=== PATIENT | male | born 1990 | race Caucasian/White ===

== ENCOUNTER 2021-07-04 10:25 | Emergency (ER) | payer SELFPAY ==
[2021-07-04 10:26] VITALS: BP 155/77; PULSE 107; RESP 18; TEMP 36.9; O2SAT 100; BMI 27.1
--- NOTE | 2021-07-04 10:36 | XR_ITS ---
FINAL REPORT CLINICAL HISTORY: injury, pain, fall, pt unable to bend knee FINDINGS: RIGHT KNEE 3 views of the right knee were obtained. There is no acute fracture or dislocation. There are postoperative changes of the patella. Patella [place] is noted. A patellar tendon injury cannot be excluded. Soft tissues are unremarkable. IMPRESSION: Patella [place] is noted, a patellar tendon injury cannot be excluded. MRI may be helpful. Reviewed, Interpreted and Dictated by Ludwin Rosas III, MD Transcribed by Sabrina Aldana Authenticated by Ludwin Rosas III, MD on 07/04/2021 12:39:59 PM [facility]
--- NOTE | 2021-07-04 10:37 | HMH.EDGENADL ---
ED Disposition Clinical Impression: Rupture of right patellar tendon Qualifiers: Encounter type: initial encounter Qualified Code(s): S86.811A - Strain of other muscle(s) and tendon(s) at lower leg level, right leg, initial encounter Disposition: Home, Self-Care Condition on Discharge: Good Prescriptions: Oxycodone HCl/Acetaminophen [Percocet 7.5-325 mg Tablet] 1 each PO Q6 PRN 3 Days #12 tab PRN Reason: Moderate To Severe Pain Transmission Status: Pending to [facility]/pharmacy #[id number] Referrals: Provider,Referral, MD [Primary Care Provider] - - Critical Care Critical Care Time: No Attestation: On , the high probability of a clinically significant, sudden or life threatening deterioration of the following system(s) required my full and direct attention, intervention and personal management. The time I documented below is in addition to time spent performing reported procedures but includes the following listed in this critical care notation. Medical Decision Making - Yamil Inquiry Pt receiving controlled substance: Yes Yamil was queried for this patient: Yes Risks and benefits of using a controlled substance: were discussed with pt by Vital Signs: 07/04/21 10:26 07/04/21 11:28 07/04/21 11:29 Temperature 98.5 F 98.5 F 98.5 F Temperature Source Oral Oral Pulse Rate 102 H 100 H Pulse Rate [Left Radial] 107 H Respiratory Rate 18 18 18 Blood Pressure 145/78 H 160/75 H Blood Pressure [Right Arm] 155/77 H Blood Pressure Mean [Right Arm] 103 Blood Pressure Source [Right Arm] Automatic Cuff Blood Pressure Position [Right Arm] Sitting 02 Sat by Pulse Oximetry 100 Oxygen Delivery Method Room Air Room Air Room Air Orders (Tests/Meds): ED MEDICATIONS Discontinued Medications Generic Name Dose Route Start Last Admin Trade Name Freq PRN Reason Stop Dose Admin Ketorolac Tromethamine 60 mg 07/04/21 10:36 07/04/21 11:03 Ketorolac 60mg/2ml Vial IM 07/04/21 10:37 Not Given ONCE ONE Oxycodone/Acetaminophen 1 each 07/04/21 10:36 07/04/21 11:03 Oxycodone 5mg W/Apap 325mg Tablet PO 07/04/21 10:37 Not Given ONCE ONE Oxycodone/Acetaminophen 1 each 07/04/21 11:02 07/04/21 11:04 Oxycodone 7.5mg W/Apap 325mg Tablet PO 07/04/21 11:03 1 each ONCE ONE Administration ORDERS Category Date Time Status XR knee RT 3V Stat Exams 07/04/21 10:36 Taken General Adult HPI - General Stated complaint: AO rt knee pain Time Seen by Provider: 07/04/21 10:37 - History of Present Illness HPI narrative: 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, diff to bear weight, mod pain Onset (ago): minute(s) Radiation: non-radiation Severity: moderate Quality: aching Consistency: constant Relieving factors: immobilization Exacerbating factors: movement Associated symptoms: denies other symptoms - Related Data Previous Rx's Medication Instructions Recorded Oxycodone HCl/Acetaminophen 1 each PO Q6 PRN 3 Days #12 tab 07/04/21 [Percocet 7.5-325 mg Tablet] Allergies Allergy/AdvReac Type Severity Reaction Status Date / Time No Known Allergies Allergy Verified 07/04/21 10:44 [facility] History - Hepatitis A Screen Attestation statement:: This patient has been screened for Hepatitis A risk factors. ROS Obtained: Yes All systems reviewed & no additional complaints Physical Exam - General General appearance: alert, in no apparent distress - Respiratory Respiratory exam: Absent: respiratory distress, wheezes, stridor - Cardiovascular Cardiovascular exam: Present: regular rate, normal rhythm. Absent: bradycardia - Extremities Exam Extremities exam: Present: other (rt knee dec rom due to pain, mild laxity, mild anterior edema, ttp patellar tend) - Neurological Exam Neurological exam: Present: alert, oriented X3, CN II-XII intact - Skin Skin exam: Present: warm, intact, normal color
[2021-07-04 11:28] VITALS: BP 145/78; PULSE 102; RESP 18; TEMP 36.9; O2SAT 100
[2021-07-04 11:29] VITALS: BP 160/75; PULSE 100; RESP 18; TEMP 36.9; O2SAT 100
== END 2021-07-04 11:31 | disposition home or self-care (01) ==
PROVIDERS: Emergency Provider Emergency Medicine
DX: S86.811A Strain of other muscle(s) and tendon(s) at lower leg level, right leg, initial encounter (principal); W01.0XXA Fall on same level from slipping, tripping and stumbling without subsequent striking against object, initial encounter
CPT/HCPCS: 73562; 99283

== ENCOUNTER 2021-07-08 12:06 | Emergency (ER) | payer SELFPAY ==
[2021-07-08 12:07] VITALS: BP 125/74; PULSE 78; RESP 16; TEMP 36.6; O2SAT 98; BMI 24.3
--- NOTE | 2021-07-08 12:22 | HMH.EDGENADL ---
ED Disposition Clinical Impression: Rupture of right patellar tendon Qualifiers: Encounter type: subsequent encounter Qualified Code(s): S86.811D - Strain of other muscle(s) and tendon(s) at lower leg level, right leg, subsequent encounter Disposition: Home, Self-Care Condition on Discharge: Good Additional Instructions: Please follow-up with her surgeons, caution when taking opioid pain medications as these substances are addictive, keep away from others, dispose of any unused. Prescriptions: methocarbamoL [Methocarbamol 500mg Tablet] 1,000 mg PO BID 30 Days #30 tab Transmission Status: Pending to [facility] Oxycodone HCl [Oxycodone 5mg tab (IR)] 5 mg PO Q6 #12 tablet Transmission Status: Sent to [facility] Referrals: Provider,Referral, [Primary Care Provider] - - Critical Care Critical Care Time: No Attestation: On 07/08/21, the high probability of a clinically significant, sudden or life threatening deterioration of the following system(s) required my full and direct attention, intervention and personal management. The time I documented below is in addition to time spent performing reported procedures but includes the following listed in this critical care notation. Medical Decision Making - Medical Records Medical records reviewed: Yes: I reviewed the patient's medical records. - Yamil Inquiry Pt receiving controlled substance: Yes Yamil was queried for this patient: Yes Risks and benefits of using a controlled substance: were discussed with pt by me Medical Decision Narrative: Patient is a 30-year-old male presents the ED today for further evaluation of right lower extremity pain. Patient with a known diagnosis of patellar tendon dislocation and rupture, patella appears to be in the appropriate positioning today, patient essentially has had delayed surgery secondary to Covid, and has run out of pain medications, on exam I did not find any concerning symptoms of the right lower extremity, pulses are intact there is no swelling, there is no sensory change or weakness. Will prescribe patient methocarbamol of multimodal pain therapy, and will prescribe additional oxycodone for the patient to take at home for pain, discussed risks and benefits of obtaining an opioid prescription at this time, however given the patient has follow-up scheduled, no concerning findings on Yamil, believe it is reasonable to send patient with another opioid prescription for only a couple of days. Patient given return precautions return to the ED with any new or worsening symptoms as we discussed evidence of swelling, vascular injury of the right lower extremity, sensory change. Patient is in the medical field, is aware of the symptoms, has verbalized understanding with this plan. General Adult HPI - General Stated complaint: covid pos 07/07, 07/04 knee injury Time Seen by Provider: 07/08/21 12:10 - History of Present Illness HPI narrative: Patient is a 30-year-old male presents the ED today for further evaluation of right knee pain. Patient was recently seen here in the emergency department, after slipping, and having a patellar dislocation with continued knee pain afterward, found to have a quadriceps tendon rupture. Patient was planned to be operated on by his orthopedic surgeon up at [facility], however was recently found to be Covid positive which has delayed his surgery. Patient will have a surgery in approximately 5 days after he is cleared from Covid precautions, but has run out of pain medication, patient is currently in a cloth knee immobilizer, states that he takes it off once or twice per day, but states that he is not bearing any weight, states when he moves around with his crutches, has worsening knee pain. Patient has been otherwise well with no falls, no sensory changes of the right lower extremity, no intrinsic weakness or swelling of the right lower extremity. - Related Data Previous Rx's
[2021-07-08 12:54] VITALS: BP 125/71; PULSE 78; RESP 16; TEMP 36.6; O2SAT 98
== END 2021-07-08 12:56 | disposition home or self-care (01) ==
PROVIDERS: Emergency Provider Student in an Organized Health Care Education/Training Program
DX: S86.811A Strain of other muscle(s) and tendon(s) at lower leg level, right leg, initial encounter (principal); U07.1 COVID-19
CPT/HCPCS: 99281